=== PATIENT | male | born 1995 | race American Indian/Alaskan Native ===

== ENCOUNTER 2020-09-19 13:34 | Emergency (ER) | payer SELFPAY ==
[2020-09-19 13:42] VITALS: BP 119/87
--- NOTE | 2020-09-19 13:53 | Emergency Department Report ---
ED Abdominal Pain HPI - General Chief Complaint: Abdominal Pain Stated Complaint: VOMITTING Time Seen by Provider: 09/19/20 13:46 Source: patient Mode of arrival: Ambulatory Limitations: No Limitations - History of Present Illness Initial Comments: 25-year-old -[place] male presents to the emergency room complaining of abdominal pain and nausea and vomiting 1 hour prior to arrival. Patient states that abdominal pain is crampy. Patient states he last vomited 15 minutes ago. Patient denies any diarrhea chest pain no shortness of breath. Patient smells strong of TSH and when questioned he states that he does smoke but did not smoke today. Patient denies any diarrhea testicular pain penile discharge. MD Complaint: abdominal pain Onset/Timin -: hour(s) Location: diffuse Radiation: none Severity scale (0 -10): 9 Quality: cramping Consistency: constant Improves With: nothing Worsens With: nothing Associated Symptoms: nausea, vomiting - Related Data Allergies Allergy/AdvReac Type Severity Reaction Status Date / Time No Known Allergies Allergy Unverified 09/19/20 13:38 ED Review of Systems ROS: Stated complaint: VOMITTING Other details as noted in HPI Comment: All other systems reviewed and negative ED Past Medical Hx - Past Medical History Previous Medical History?: No - Surgical History Past Surgical History?: No - Social History Smoking Status: Current Every Day Smoker Substance Use Type: Marijuana ED Physical Exam - General Limitations: No Limitations General appearance: alert, in no apparent distress - Head Head exam: Present: atraumatic, normocephalic - Eye Eye exam: Present: normal appearance - ENT ENT exam: Present: mucous membranes moist - Neck Neck exam: Present: normal inspection, full ROM - Respiratory Respiratory exam: Present: normal lung sounds bilaterally. Absent: chest wall tenderness - Cardiovascular Cardiovascular Exam: Present: regular rate, normal rhythm. Absent: systolic murmur, diastolic murmur, rubs, gallop - GI/Abdominal GI/Abdominal exam: Present: soft, tenderness. Absent: distended ED Course Vital Signs 09/19/20 13:39 Temperature 97.9 F Pulse Rate 66 Respiratory 20 Rate Blood Pressure 119/87 O2 Sat by Pulse 100 Oximetry ED Medical Decision Making - Lab Data Result diagrams: 09/19/20 14:00 09/19/20 14:00 Laboratory Tests 09/19/20 09/19/20 14:00 14:00 WBC 10.9 RBC 5.00 Hgb 16.2 H Hct 45.7 H MCV 91 MCH 32 MCHC 36 H RDW 12.0 L Plt Count 183 Lymph % (Auto) 9.8 L [place] % (Auto) 4.7 Eos % (Auto) 0.0 Baso % (Auto) 0.5 Lymph # (Auto) 1.1 L [place] # (Auto) 0.5 Eos # (Auto) 0.0 Baso # (Auto) 0.1 Seg Neutrophils % 85.0 H Seg Neutrophils # 9.2 H Sodium 139 Potassium 3.8 Chloride 101.6 Carbon Dioxide 26 Anion Gap 15 BUN 13 Creatinine 1.0 Estimated GFR > 60 BUN/Creatinine Ratio 13 Glucose 138 H Calcium 9.4 Total Bilirubin 0.30 AST 18 ALT 13 Alkaline Phosphatase 50 Total Protein 7.3 Albumin 4.6 Albumin/Globulin Ratio 1.7 Lipase 14 - Medical Decision Making 25-year-old -[place] male presents to the emergency room complaining of abdominal pain and nausea and vomiting 1 hour prior to arrival. Patient states that abdominal pain is crampy. Patient states he last vomited 15 minutes ago. Patient denies any diarrhea chest pain no shortness of breath. Patient smells strong of TSH and when questioned he states that he does smoke but did not smoke today. Patient denies any diarrhea testicular pain penile discharge. Nurse reported patient pulled out his IV and left the ER. Critical care attestation.: If time is entered above; I have spent that time in minutes in the direct care of this critically ill patient, excluding procedure time. ED Disposition Clinical Impression: Cannabis hyperemesis syndrome concurrent with and due to cannabis abuse Disposition: Z-[id number] ELOPED Is pt being admited?: No Does the pt Need Aspirin: No Condition: Undetermined Instructions: Cannabinoid Hyperemesis Syndrome Referrals: PRIMARY CARE, [Primary Care Provider] - 3-5 Days Forms: AMA Form
[2020-09-19] MEDS ORDERED: HALOPERIDOL LACTATE 5 MG/1 ML INJ IM ONE (13:55)
[2020-09-19] MEDS ORDERED: SODIUM CHLORIDE 0.9% 1000 ML 1,000 ML IV ONE (14:02)
[2020-09-19 14:16] LABS: Basophils # (Auto) 0.1 K/mm3 (0.0-0.1); Basophils % (Auto) 0.5 % (0.0-1.8); Hematocrit 45.7 % (35.5-45.6); Hemoglobin 16.2 gm/dl (11.8-15.2); Lymphocytes # (Auto) 1.1 K/mm3 (1.2-5.4); Lymphocytes % (Auto) 9.8 % (13.4-35.0); Mean Corpuscular HGB Conc 36 % (32-34); Mean Corpuscular Volume 91 fl (84-94); Monocytes # (Auto) 0.5 K/mm3 (0.0-0.8); Monocytes % (Auto) 4.7 % (0.0-7.3); Platelet Count 183 K/mm3 (140-440)
[2020-09-19 14:40] LABS: Alanine Aminotransferase 13 units/L (7-56); Albumin 4.6 g/dL (3.9-5); BUN/Creatinine Ratio 13; Blood Urea Nitrogen 13 mg/dL (9-20); Calcium 9.4 mg/dL (8.4-10.2); Hemolysis Index 13
== END 2020-09-19 14:57 | disposition left against medical advice (07) ==
LOC: ED 13:34
DX: R11.10 Vomiting, unspecified (principal); F12.120 Cannabis abuse with intoxication, uncomplicated; F17.200 Nicotine dependence, unspecified, uncomplicated; F12.10 Cannabis abuse, uncomplicated
CPT/HCPCS: 36415; 80053; 83690; 85025; 96360; 96372; 99283; J1630; J7030